=== PATIENT | female | born 1975 | race Caucasian/White ===

== ENCOUNTER → 2016-08-18 | Outpatient (CLI) | payer BC ==
[~2016-08-18] MED LIST: ACYC800T PO; CYCL5TAB PO; DULO30CA2 PO; ESTR1TAB88 PO; METO10TA3 PO; ONDA8TAB5; OXYC-533 PO; PANT40TA27 PO; PREG225C PO; RANI300T4 PO; TRAZ-58 PO
== END ==
LOC: IMA 13:39
PROVIDERS: ATTEND Physician Assistant
DX: Z53.8 Procedure and treatment not carried out for other reasons (principal)